=== PATIENT | female | born 1950 | race Two or more races ===

== ENCOUNTER 2020-12-25 16:35 | Emergency (ER) | payer OTHER ==
[2020-12-25] MEDS ORDERED: ACETAMINOPHEN 500 MG TABLET (FP) PO ONE (16:44)
[2020-12-25] MEDS ORDERED: ACETAMINOPHEN 325 MG TABLET (FP) ONE (16:53)
[2020-12-25 16:56] VITALS: BP 147/82; PULSE 83; TEMP 98.1; BMI 22.6
[2020-12-25] MEDS ORDERED: TETRAHYDROZOLINE HCL EYE DROPS OU PRN (17:57)
== END 2020-12-25 19:20 | disposition home or self-care (01) ==
LOC: FER 16:35
DX: M25.562 Pain in left knee (principal); G89.29 Other chronic pain
CPT/HCPCS: 73562-TC-LT-FY; 99283-25